=== PATIENT | male | born 1970 | race Caucasian/White ===

== ENCOUNTER 2017-10-06 15:07 | Emergency (ER) | payer BC ==
[~2017-10-06] VITALS: Ht 177.8 cm; Wt 80.8 kg
[~2017-10-06 15:07] MED LIST: DIPH25CA65 PO; IBUP-1050 PO
[2017-10-06 15:11] VITALS: TEMP 36.8; Ht 177.8 cm; Wt 80.8 kg
[2017-10-06] MEDS ORDERED: SODIUM CHLORIDE 0.9% 1000ML 1,000 ML IV STA (15:15)
--- NOTE | 2017-10-06 15:26 | EMERGENCY ROOM VISIT NOTE ---
History Report prepared by Aleks: Jodi Le Under the Supervision of: Cesia BlankenshipO. First contact with patient: 15:14 Chief Complaint: CARDIAC ASSESSMENT Stated Complaint: HEART FLUTTERING, SOB, LIGHT HEADED, JAW PAIN, HEA History of Present Illness The patient is a 47 year old male who presents to the Emergency Room with complaints of intermittent heart fluttering beginning yesterday. The patient states that yesterday he began to feel fluttering in his chest and today he is having intermittent lightheadedness. He reports that throughout the day today he has had worsening shortness of breath and jaw tension. He notes that over the last few weeks he has had intermittent headaches. The patient reports that a few months ago he had chest pain in a similar area to his fluttering. He notes that he was seen at urgent care today and was sent into the ED. He states that his pain is not worsened with exertion or lying down. He denies any chest pain, leg swelling, leg pain, abdominal pain, vomiting, recent illness, recent surgery, recent travel. The patient notes that right now he does not feel his heart fluttering. He notes a history of triple bypass in his maternal grandfather before the age of 50 and denies any history of atrial fibrillation. Source of History: patient Onset: yesterday Position: other (heart) Quality: other (fluttering) Timing: intermittent Modifying Factors (Worsening): other (none) Associated Symptoms: + headache, + SOB, No chest pain, No vomiting, No abdominal pain Note: Pt complains of lightheadedness and jaw tension. He denies any leg swelling, leg pain, recent illness, recent surgery, recent travel. Review of Systems See HPI for pertinent positives & negatives. A total of 10 systems reviewed and were otherwise negative. Past Medical & Surgical Medical Problems: (1) Anaphylactic reaction (2) History of anaphylaxis (3) Nut allergy (4) JOCELYNN (obstructive sleep apnea) (5) Peanut allergy Family History Cardiac disorder Social History Smoking Status: Never Smoker Smokeless Tobacco Use: No Alcohol Use: occasionally Marital Status: Housing Status: lives with family Occupation Status: employed Current/Historical Medications Scheduled PRN Diphenhydramine Hcl (Benadryl), 50 MG PO UD PRN for Allergic Reaction Epinephrine (Epipen), 0.3 MG IM UD PRN for Allergic Reaction Loratadine (Allergy Relief), 10 MG PO UD PRN for Allergic Reaction Allergies Coded Allergies: Coconut (Verified Allergy, Severe, Itching in face, mouth and throat, 07/23) Nut Tree (Unverified Allergy, Severe, ANAPHYLAXIS, 07/23/16) Chocolate (Verified Allergy, Intermediate, Itching in face, mouth and throat, 07/23/16) Kiwi (Verified Allergy, Intermediate, Itching in face, mouth and throat, 07/23/16) Uncoded Allergies: PEANUTS (Allergy, Severe, anaphylaxis, 07/23/16) SEEDS (Allergy, Intermediate, Itching in face, mouth and throat, 07/23/16) Physical Exam Vital Signs Date Time Temp Pulse Resp B/P (MAP) Pulse Ox O2 Delivery O2 Flow Rate FiO2 10/06/17 16:40 74 16 132/98 97 10/06/17 16:22 76 10/06/17 15:35 Room Air 10/06/17 15:29 95 Room Air 10/06/17 15:29 95 Room Air 10/06/17 15:11 36.8 82 18 139/93 97 Room Air Physical Exam GENERAL: Patient is awake, alert, and in no acute distress. Patient is resting comfortably and showing no signs of anxiety EYES: The conjunctivae are clear. The pupils are round and reactive. EARS, NOSE, MOUTH AND THROAT: The nose is without any evidence of any deformity. Mucous membranes are moist tongue is midline NECK: The neck is nontender and supple. RESPIRATORY: Normal respiratory effort is noted there is no evidence of wheezing rhonchi or rales CARDIOVASCULAR: Regular rate and rhythm noted there no murmurs rubs or gallops normal S1 normal S2 GASTROINTESTINAL: The abdomen is soft. Bowel sounds are present in all quadrants. Abdomen is nontender MUSCULOSKELETAL/EXTREMITIES: There is no evidence of gross deformity full range of motion is noted in the hips and shoulders SKIN: There is no obvious evidence of any rash. There are no petechiae, pallor or cyanosis noted. NEUROLOGIC: Patient is awake alert and oriented x3 strength is symmetric patellar reflexes are 2+ bilaterally Medical Decision & Procedures ER Provider Diagnostic Interpretation: X-ray results as stated below per interpretation by me and the radiologist. CHEST ONE VIEW PORTABLE CLINICAL HISTORY: 47 years-old Male presenting with CHEST PAIN. TECHNIQUE: Portable upright AP view of the chest was obtained. COMPARISON: 07/23/2016. FINDINGS: Cardiomediastinal silhouette normal. Lungs and pleural spaces clear. Osseous structures normal. Upper abdomen normal. IMPRESSION: 1. No acute cardiopulmonary disease. Electronically signed by: Chandler Granados M.D. 10/06/2017 4:03 PM Dictated Date/Time: 10/06/2017 4:02 PM Laboratory Results 10/06/17 15:24 Red Blood Count 5.51, Mean Corpuscular Volume 79.9, Mean Corpuscular Hemoglobin 29.2, Mean Corpuscular Hemoglobin Concent 36.6, Mean Platelet Volume 9.2, Neutrophils (%) (Auto) 62.0, Lymphocytes (%) (Auto) 27.2, Monocytes (%) (Auto) 8.9, Eosinophils (%) (Auto) 1.4, Basophils (%) (Auto) 0.3, Neutrophils # (Auto) 3.95, Lymphocytes # (Auto) 1.73, Monocytes # (Auto) 0.57, Eosinophils # (Auto) 0.09, Basophils # (Auto) 0.02 10/06/17 15:24 Test 10/06/17 15:24 White Blood Count 6.37 K/uL (4.8-10.8) Red Blood Count 5.51 M/uL (4.7-6.1) Hemoglobin 16.1 g/dL (14.0-18.0) Hematocrit 44.0 % (42-52) Mean Corpuscular Volume 79.9 fL (80-100) Mean Corpuscular Hemoglobin 29.2 pg (25-34) Mean Corpuscular Hemoglobin Concent 36.6 g/dl (32-36) Platelet Count 154 K/uL (130-400) Mean Platelet Volume 9.2 fL (7.4-10.4) Neutrophils (%) (Auto) 62.0 % Lymphocytes (%) (Auto) 27.2 % Monocytes (%) (Auto) 8.9 % Eosinophils (%) (Auto) 1.4 % Basophils (%) (Auto) 0.3 % Neutrophils # (Auto) 3.95 K/uL (1.4-6.5) Lymphocytes # (Auto) 1.73 K/uL (1.2-3.4) Monocytes # (Auto) 0.57 K/uL (0.11-0.59) Eosinophils # (Auto) 0.09 K/uL (0-0.5) Basophils # (Auto) 0.02 K/uL (0-0.2) RDW Standard Deviation 36.1 fL (36.4-46.3) RDW Coefficient of Variation 12.6 % (11.5-14.5) Immature Granulocyte % (Auto) 0.2 % Immature Granulocyte # (Auto) 0.01 K/uL (0.00-0.02) Prothrombin Time 10.7 SECONDS (9.0-12.0) Prothromb Time International Ratio 1.0 (0.9-1.1) Activated Partial Thromboplast Time 26.0 SECONDS (21.0-31.0) Partial Thromboplastin Ratio 1.0 Anion Gap 6.0 mmol/L (3-11) Est Creatinine Clear Calc Drug Dose 117.9 ml/min Estimated GFR () 123.3 Estimated GFR (Non- 106.4 BUN/Creatinine Ratio 18.9 (10-20) Calcium Level 8.7 mg/dl (8.5-10.1) Magnesium Level 2.0 mg/dl (1.8-2.4) Total Bilirubin 0.8 mg/dl (0.2-1) Direct Bilirubin 0.1 mg/dl (0-0.2) Aspartate Amino Transf (AST/SGOT) 25 U/L (15-37) Alanine Aminotransferase (ALT/SGPT) 46 U/L (12-78) Alkaline Phosphatase 53 U/L (45-117) Total Creatine Kinase 88 U/L (39-308) Creatine Kinase MB < 0.5 ng/ml (0.5-3.6) Creatine Kinase MB Ratio (0-3.0) Troponin I < 0.015 ng/ml (0-0.045) Total Protein 7.6 gm/dl (6.4-8.2) Albumin 4.3 gm/dl (3.4-5.0) Lipase 211 U/L (73-393) Thyroid Stimulating Hormone (TSH) 1.620 uIu/ml (0.300-4.500) Free Thyroxine 1.12 ng/dl (0.80-1.60) Laboratory results per my review. Medications Administered Medications (Trade) Dose Ordered Sig/Chasidy Route Start Time Stop Time Status Last Admin Dose Admin Sodium Chloride 1,000 ml @ 999 mls/hr Q1H1M STAT IV 10/06/17 15:15 10/06/17 16:15 DC 10/06/17 15:34 999 MLS/HR ECG Indication: chest pain Rate (beats per minute): 79 Rhythm: normal sinus Findings: no ectopy, other (no acute ST segment abnormalities) Comparison ECG Date: 07/23/16 Change: no significant change ED Course 1514: The patient was evaluated in room A10. A complete history and physical examination were performed. 1515: NSS 1,000 ml @ 999 mls/hr IV. 1633: I spoke with the patient and discussed the lab and radiology findings. 1643: Upon reevaluation, the patient is doing well. I discussed the results and treatment plan with the patient. The patient verbalized agreement of the treatment plan. The patient was discharged home. Medical Decision Differential diagnosis: Etiologies such as cardiac ischemia, aortic dissection, pulmonary embolism, pneumonia, pneumothorax, musculoskeletal, infections, pericarditis, myocarditis , esophageal rupture, gastrointestinal, as well as others were entertained. Nursing notes reviewed. The patient is a 47-year-old male who presented to the emergency department for an evaluation of palpitations. The patient describes episodes of palpitations he been having recently. He had an episode of PVC in the emergency department and he felt that this was consistent with his previous complaint. The patient was treated with IV fluids in the emergency department. I discussed patient's laboratory and radiographic studies with him. He was encouraged to rest and avoid any strenuous activity. He was also encouraged to drink plenty clear liquids and avoid caffeine and alcoholic beverages. He was also encouraged to discuss possibility with his family doctor that he may require further workup including echocardiogram and Holter monitor. He was also encouraged to return the emergency Department immediately if symptoms change worsen or the need arises. Medication Reconcilliation Current Medication List: was personally reviewed by me Blood Pressure Screening Patient's blood pressure: Elevated blood pressure Blood pressure disposition: Elevated BP felt to be situational Impression Primary Impression: Palpitations Additional Impression: PVC (premature ventricular contraction) Scribe Attestation The scribe's documentation has been prepared under my direction and personally reviewed by me in its entirety. I confirm that the note above accurately reflects all work, treatment, procedures, and medical decision making performed by me. Departure Information Dispostion Home / Self-Care Referrals Damian Mckenzie M.D.(TRUE) (PCP) Forms IMPORTANT VISIT INFORMATION Patient Instructions Heart Palpitations, My [facility], Premature Ventricular Contract About Additional Instructions Call your family to schedule a follow-up appointment. You may require further studies such as an echocardiogram or Holter monitor to further evaluate your symptoms. Avoid any strenuous activity. Avoid alcohol and caffeinated beverages. Drink plenty clear liquids. Return to the emergency department immediately if symptoms change worsen or the need arises. Problem Qualifiers
[2017-10-06 15:29] VITALS: O2SAT 95
[2017-10-06 15:33] LABS: BASO % 0.3 %; BASO ABS # 0.02 K/uL (0-0.2); COMPLETE YES; EOS % 1.4 %; IG% 0.2 %; LYMPH % 27.2 %; LYMPH ABS # 1.73 K/uL (1.2-3.4); MEAN CELL VOLUME 79.9 fL (80-100); MEAN CORPUSCULAR HEMOGLOBIN 29.2 pg (25-34); MEAN CORPUSCULAR HGB CONC 36.6 g/dl (32-36); MEAN PLATELET VOLUME 9.2 fL (7.4-10.4); MONO % 8.9 %; PLATELET COUNT 154 K/uL (130-400); RED BLOOD COUNT 5.51 M/uL (4.7-6.1); WHITE BLOOD COUNT 6.37 K/uL (4.8-10.8)
[2017-10-06] MEDS ORDERED: DIPH25CA5 PO (15:33)
[2017-10-06] MEDS ORDERED: EPP3/2 IM (15:33)
[2017-10-06] MEDS ORDERED: LORA-554 PO (15:33)
[2017-10-06 15:43] LABS: PROTHROMBIN TIME (PATIENT) 10.7 SECONDS (9.0-12.0)
[2017-10-06 15:51] LABS: ALT/SGPT 46 U/L (12-78); BLOOD UREA NITROGEN 15 mg/dl (7-18); BUN/CREATININE RATIO 18.9 (10-20); CALCIUM 8.7 mg/dl (8.5-10.1); CARBON DIOXIDE 27 mmol/L (21-32); CHLORIDE 106 mmol/L (98-107); GLUCOSE 94 mg/dl (70-99); POTASSIUM 3.8 mmol/L (3.5-5.1); SODIUM 139 mmol/L (136-145)
[2017-10-06 16:00] LABS: ALKALINE PHOSPHATASE 53 U/L (45-117); AST/SGOT 25 U/L (15-37)
--- NOTE | 2017-10-06 16:04 | DIAGNOSTIC IMAGING REPORT ---
CHEST ONE VIEW PORTABLE CLINICAL HISTORY: 47 years-old Male presenting with CHEST PAIN. TECHNIQUE: Portable upright AP view of the chest was obtained. COMPARISON: 07/23/2016. FINDINGS: Cardiomediastinal silhouette normal. Lungs and pleural spaces clear. Osseous structures normal. Upper abdomen normal. IMPRESSION: 1. No acute cardiopulmonary disease. Electronically signed by: Chandler Granados M.D. 10/06/2017 4:03 PM Dictated Date/Time: 10/06/2017 4:02 PM
[2017-10-06 16:40] VITALS: BP 132/98; PULSE 74; O2SAT 97
== END 2017-10-06 16:41 | disposition home or self-care (01) ==
LOC: C.EDB 15:09 → C.EDA 16:41
DX: R00.2 Palpitations (principal); I49.3 Ventricular premature depolarization; G47.33 Obstructive sleep apnea (adult) (pediatric); Z82.49 Family history of ischemic heart disease and other diseases of the circulatory system